=== PATIENT | female | born 1940 | race Caucasian/White ===

== ENCOUNTER 2017-09-23 19:24 | Inpatient (IN) | payer OTHER ==
[~2017-09-23] VITALS: Ht 160 cm; Wt 71.6 kg
--- NOTE | ~2017-09-23 | HC ---
[facility] [place] [address] [address] [place] [address] CONSULTATION Name: JUAN THOMPSON Room #: 239-P [facility] IN M.R.#: [id number] Admission: 09/23/17 Attend Phys: Nura Mcfarland DO Discharge: Date of : 44 Report #: [id number] THIS REPORT FOR: //name// CC: Ryan Vizcaino REASON FOR CONSULTATION: Hyponatremia. REASON FOR PRESENTATION: Abnormal mental status. HISTORY OF PRESENT ILLNESS: This was obtained from the chart as the patient is currently status post seizure and not able to provide me with history. She presented with acute mental status last night. Caregiver and her facility reported that she has not been able to carry a normal conversation. She was confused. In her usual status, she is alert and oriented. She presented to the emergency room where she was found to have seizure and hyponatremia. She is chronically maintained on hydrochlorothiazide/triamterene. She is also known to have seizure disorder. Sodium on presentation was 108 and I was consulted to manage her hyponatremia. PAST MEDICAL HISTORY: 1. Seizure disorder. 2. Hypertension. 3. Hypothyroidism. MEDICATIONS: 1. Phenytoin. 2. Phenobarb. 3. Levothyroxine. 4. Triamterene/hydrochlorothiazide. ALLERGIES: None. SOCIAL HISTORY: She stays in the facility. No drug or alcohol abuse. REVIEW OF SYSTEMS: This was obtained from the ER note as the patient currently had acute mental status changes. CONSTITUTIONAL: No fever or chills. PULMONARY: No cough or hemoptysis. CARDIOVASCULAR: No chest pain or palpitation. GASTROINTESTINAL: Decreased p.o. intake. GENITOURINARY: No frequency, no urgency. NEUROLOGIC: As per the history of present illness. PHYSICAL EXAMINATION: [facility] [address] [place] [address] CONSULTATION Name: THOMPSONJUAN Room #: 239-P [facility] IN M.R.#: [id number] Admission: 09/23/17 Attend Phys: Nura Mcfarland DO Discharge: Date of : 42 Report #: [id number] GENERAL: . VITAL SIGNS: Pulse ox 97, blood pressure 150/80. HEAD AND NECK: No jugular venous distention. CHEST: No crackles. CARDIOVASCULAR: Regular with no rub. ABDOMEN: Soft, nontender with no hepatosplenomegaly. LOWER EXTREMITIES: No edema. LABORATORY DATA: Reviewed. Sodium is up to 114 from 108, that is a 6 mEq change. Potassium is low at 2.6. CT head negative. Chest x-ray negative. ASSESSMENT, IMPRESSION AND PLAN: 1. Acute hyponatremia. 2. Seizure disorder. 3. Chronic triamterene/hydrochlorothiazide usage. 4. This seems to be all exacerbated by her triamterene/hydrochlorothiazide. She received 200 mL of 3% saline with complete resolution of her seizures. Sodium is up by 6 mEq, at this point I will stop all the IV fluid. 5. Replace potassium. 6. Continue to watch sodium every 2-3 hours with a target of very gradual increment in her sodium so as not to overshoot with overcorrection. 7. We will defer the management of her seizures to the primary and the neurology team. 8. The fact that she had a persistent seizure in the face of hyponatremia was an absolute indication for 3% . <ELECTRONICALLY SIGNED> By: Ryan Smith MD 09/26/17 0939 0847 0926 Ryan Smith MD /nt
--- NOTE | ~2017-09-23 | EEG ---
[facility] [place] [address] [place] [address] ELECTROENCEPHALOGRAM Name: JUAN THOMPSON Room #: 239-P [facility] IN M.R.#: [id number] Admission: 09/23/17 Attend Phys: Nura Mcfarland DO Discharge: Date of : 42 Report #: [id number] THIS REPORT FOR: //name// CC: Ryan Drake [facility]eric Hallie Atwater DATE OF SERVICE: 09/30/2017 This patient's EEG indicates that on the left side, the background activity is about 8 Hz and 30 microvolt. Epileptiform activity is still present on the right side, but appeared to have improved. Photic stimulation is unremarkable. IMPRESSION: Continuous improvement in the epileptiform activity in the right cerebral hemisphere, but it has not fully resolved yet. Thank you very much for this referral. <ELECTRONICALLY SIGNED> By: Milton Avilez MD 10/03/17 0732 1702 1715 Milton Avilez MD /nt
--- NOTE | ~2017-09-23 | HC ---
[facility] [place] [address] [place] [address] CONSULTATION Name: JUAN THOMPSON Room #: 239-P [facility] IN M.R.#: [id number] Admission: 09/23/17 Attend Phys: Nura Mcfarland DO Discharge: Date of : 42 Report #: [id number] THIS REPORT FOR: //name// CC: Ryan Vizcaino TYPE OF REPORT: Infectious diseases consultation. REASON FOR CONSULTATION: I was asked to evaluate concerning seizures, hypertension and pneumonia. HISTORY OF PRESENT ILLNESS: The patient was a 77-year-old known longstanding seizure disorder, controlled on several anti-seizure medications. She lives at [facility]. Has noted some cough and congestion over the last week. Yesterday was noted to have some cognitive impairment. Because of this, she was brought into the Emergency Room. She developed further seizures. Once in the Emergency Room, required intubation and mechanical ventilation. She has had no fever, chills or sweats. There was predating this, no headaches. Further evaluation noted ischemic changes on MRI scan along with hyponatremia with a sodium of 109. White count was 14.3 and chest x-ray showed left lower lobe infiltrate. She was started on vancomycin and Zosyn. ALLERGIES: None known. MEDICATIONS: Prior to her admission included fish oil, Nexium, fexofenadine, folic acid, Synthroid, multivitamin, phenobarbital, Maxzide, Dilantin, vitamin B12 and levothyroxine. PAST MEDICAL HISTORY: Seizure disorder since age 4, hypothyroidism and hypertension and fractured her wrist 2 months ago. FAMILY HISTORY: Noncontributory. SOCIAL HISTORY: Nonsmoker. No significant alcohol intake. No HIV risks. REVIEW OF SYSTEMS: The patient unable to give any details. She was intubated and on mechanical ventilation. Did have an indwelling [place] catheter. PHYSICAL EXAMINATION: VITAL SIGNS: Afebrile, heart rate 178 and blood pressure 117/75, on Levophed drip and propofol. She is intubated on FiO2 of 40%. There was tonic-clonic movements to her left hand and arm. EYES: Unremarkable. [facility] [address] [place] [address] CONSULTATION Name: JUAN THOMPSON Room #: 239-P [facility] IN M.R.#: [id number] Admission: 09/23/17 Attend Phys: Nura Mcfarland DO Discharge: Date of : 42 Report #: [id number] MOUTH: Orally intubated. NECK: Supple. LUNGS: Consolidation in the left base posteriorly. HEART: Regular. ABDOMEN: Soft and nontender. EXTREMITIES: Unremarkable. RADIOLOGICAL DATA: CT scan of the head was unremarkable. MRI scan of the head showed right temporal stroke with involvement in the thalamus as well as the right insular cortex. Also, has mild sinusitis changes. Chest x-ray, left lower lobe consolidation. LABORATORY DATA: Sodium 122 and up from her admission of 109, potassium 3.3, bicarbonate of 27 and creatinine 0.7. Hemoglobin 10.5; platelet count 284,000 and white count was 14.3. MRSA screen negative. TSH normal. Urinalysis unremarkable. IMPRESSION: A 77-year old with ongoing seizures in the setting of hyponatremia and new onset stroke. Other findings include mild sinusitis and left lower lobe pneumonia. Given these factors, I am doubtful that this is a primary central nervous system infection. RECOMMENDATIONS: I would recommend continuing antibiotic coverage pending culture results of blood and sputum. We will check influenza studies and treat with antibiotics and Tamiflu. We will discuss further with Neurology. If they feel that this is atypical process for her stroke presentation, then we will proceed with a lumbar puncture. <ELECTRONICALLY SIGNED> By: Juan Miguel Thurman MD 09/27/17 0951 1239 2320 Juan Miguel Thurman MD /nt
--- NOTE | ~2017-09-23 | EEG ---
[facility] [place] [address] [place] [address] ELECTROENCEPHALOGRAM Name: DONNAJUAN Room #: 239-P [facility] IN M.R.#: [id number] Admission: 09/23/17 Attend Phys: Nura Mcfarland DO Discharge: Date of : 42 Report #: [id number] THIS REPORT FOR: //name// CC: Ryan Drake Noemí Wisemen DATE OF SERVICE: 09/26/2017 This patient is being evaluated for a followup of seizures. EEG was done by placing the electrodes by standard 10-20 system of electrode placement. Both referential and sequential montages were used for recording. Background activity in this patient's EEG is about 7 Hz on the left side. On the right side this patient continued to demonstrate periodic lateralized epileptiform discharges. Photic stimulation is unremarkable. IMPRESSION: This is an abnormal electroencephalogram, which continues to demonstrate pretty prominent periodic lateralized epileptiform discharges. Clinical correlation is recommended for that. Thank you very much for this referral. <ELECTRONICALLY SIGNED> By: Milton Avilez MD 09/28/172001 01 19 Milton Avilez MD /nt
--- NOTE | ~2017-09-23 | EEG ---
[facility] [address] [place] [address] ELECTROENCEPHALOGRAM Name: DONNAJUAN Room #: 239-P [facility] IN M.R.#: [id number] Admission: 09/23/17 Attend Phys: Nura Mcfarland DO Discharge: Date of : 42 Report #: [id number] THIS REPORT FOR: //name// CC: Ryan Drake Francoiseric Hallie Wisemen DATE OF SERVICE: 09/27/2017 This patient is being evaluated for a seizure disorder. This is a comparison with the last EEG. On the left side, the patient's background activity is going about 9 Hz and 30 microvolt. On the right side, the patient still has periodic lateralizing epileptiform discharges, but looks less than it was last time. IMPRESSION: A slight improvement in this patient's periodic lateralizing epileptiform discharges on the right side, but still significant amount of epileptiform activity is present, almost exclusively on the right side. Thank you very much for this referral. <ELECTRONICALLY SIGNED> By: Milton Avilez MD 09/28/172001 1758 181 Milton Avilez MD /nt
--- NOTE | ~2017-09-23 | 2DMMODE ---
[facility] [address] [place] [address] 2 D/M-MODE ECHOCARDIOGRAM Name: JUAN THOMPSON Room #: 239-P [facility] IN M.R.#: [id number] Admission: 09/23/17 Attend Phys: Nura Mcfarland, Discharge: Date of : 44 Date of Service: 09/25/17 1526 Report #: [id number] THIS REPORT FOR: //name// APPROVED REPORT Study performed: 09/25/2017 14:10:36 EXAM: Comprehensive 2D, Doppler, and color-flow Echocardiogram Patient Location: ICU Room #: 239 Status: routine BSA: 1.70 HR: 80 bpm BP: 106/51 mmHg Other Information Study Quality: Adequate Indications CVA/TIA Echo Enhancing Agent Indication: Rule out Shunt Agent(s) / Amount(s) Used: Agitated Saline 7 cc 2D Dimensions RVDd: 28.77 mm LVEF(%): 66.09 (>50%) IVSd: 7.84 (7-11mm) LVOT Diam: 19.46 (18-24mm) LVDd: 46.61 mm PWd: 7.23 (7-11mm) LVDs: 29.66 (25-40mm) Aortic Root: 27.26 mm IVC: 24.00 mm Bettencourt's LVEF: 66.09 % Volumes Left Atrial Volume (Systole) Single Plane 4CH: 38.41 mL Single Plane 2CH: 20.98 mL LA ESV Index: 20.00 mL/m2 Aortic Valve AoV Peak Kenneth.: 1.70 m/s AO Peak Gr.: 11.55 mmHg LVOT Max P.25 mmHg LVOT Max V: 1.25 m/s LOLY Vmax: 2.19 cm2 [facility] [address] [place] [address] 2 D/M-MODE ECHOCARDIOGRAM Name: JUAN THOMPSON Room #: 239-[facility] IN .R.#: [id number] Admission: 09/23/17 Attend Phys: Nura Mcfarland, Discharge: Date of : 44 Date of Service: 09/25/17 1526 Report #: [id number] Mitral Valve E/A Ratio: 1.2 MV Decel. Time: 144.81 ms MV E Max Kenneth.: 0.78 m/s MV A Kenneth.: 0.66 m/s MV PHT: 42.00 ms IVRT: 101.50 ms Pulmonary Valve PV Peak Kenneth.: 1.01 m/s PV Peak Gr.: 4.12 mmHg Pulmonary Vein P Vein S: 0.72 m/s P Vein A: 0.36 m/s P Vein D: 0.44 m/s P Vein A Dur.: 138.4 msec P Vein S/D Ratio: 1.64 Tricuspid Valve TR Peak Kenneth.: 2.49 m/s TR Peak Gr.: 24.86 mmHg PA Pressure: 40.00 mmHg Left Ventricle The left ventricle is normal size. There is normal LV segmental wall motion. There is normal left ventricular wall thickness. The left ventricular systolic function is normal. The left ventricular ejection fraction is within the normal range. LVEF is 60-65%. Grade I - abnormal relaxation pattern. Right Ventricle The right ventricle is normal size. The right ventricular systolic function is normal. Atria The left atrium size is normal. No shunting by contrast bubble injection The right atrium size is normal. Aortic Valve Aortic valve is not well visualized. Trace aortic regurgitation. There is no aortic valvular stenosis. Mitral Valve The mitral valve is normal in structure. Trace mitral regurgitation. No evidence of mitral valve stenosis. Tricuspid Valve The tricuspid valve is normal in structure. There is trace tricuspid [facility] [address] [place] [address] 2 D/M-MODE ECHOCARDIOGRAM Name: JUAN THOMPSON Room #: 239-P [facility]#: [id number] Admission: 09/23/17 Attend Phys: Nura Mcfarland, Discharge: Date of : 42 Date of Service: 09/25/17 1526 Report #: [id number] regurgitation. Estimated PAP 40 mmHg. There is mild-moderate pulmonary hypertension. Pulmonic Valve The pulmonary valve is normal in structure. There is no pulmonic valvular regurgitation. Great Vessels The aortic root is normal in size. The inferior vena cava is dilated with no inspiratory collapse. Pericardium There is no pericardial effusion. <Conclusion> The left ventricular systolic function is normal. There is normal LV segmental wall motion. LVEF is 60-65%. No shunting by contrast bubble injection Aortic valve is not well visualized. Trace aortic regurgitation, no stenosis. The mitral valve is normal in structure. Trace mitral regurgitation. There is trace tricuspid regurgitation. Estimated pulmonary artery pressure of 40 mmHg. There is no pericardial effusion. <ELECTRONICALLY SIGNED> By: Yunier Celestin MD, FACC 09/25/17 1526 1526 1526 Yunier Celestin MD, FACC /INF
--- NOTE | ~2017-09-23 | EEG ---
[facility] [place] [address] [place] [address] ELECTROENCEPHALOGRAM Name: THOMPSONJUAN Room #: 239-P [facility] IN M.R.#: [id number] Admission: 09/23/17 Attend Phys: Nura Mcfarland DO Discharge: Date of : 42 Report #: [id number] THIS REPORT FOR: //name// CC: Ryan Drake Noemí Wisemen DATE OF SERVICE: 09/24/2017 INDICATION FOR PROCEDURE: This patient is being evaluated for seizures. INTERPRETATION: EEG was done by placing the electrodes by standard 10-20 system of electrode placement. Both referential and sequential montages were used for recording. Background activity in this patient's EEG goes up to about 6-7 Hz. The patient appeared to have pretty significant seizure activity arising from the right cerebral hemisphere. The patient went to sleep that is associated with bilaterally symmetrical sleep spindle and vertex sharp waves. Throughout the record, right-sided epileptiform activity continued to be seen. IMPRESSION: This is an abnormal electroencephalogram demonstrating epileptiform activity, especially from the right cerebral hemisphere. Thank you very much for this referral. <ELECTRONICALLY SIGNED> By: Milton Avilez MD 09/28/172001 26 02 Milton Avilez MD /nt
--- NOTE | ~2017-09-23 | EEG ---
[facility] [place] [address] [place] [address] ELECTROENCEPHALOGRAM Name: THOMPSONJUAN Room #: 361-P [facility] IN M.R.#: [id number] Admission: 09/23/17 Attend Phys: Nura Mcfarland DO Discharge: 10/09/17 Date of : 42 Report #: [id number] THIS REPORT FOR: //name// CC: Ryan Drake Francoiseric Hallie Vizcaino DATE OF SERVICE: 10/05/2017 This patient had status epilepticus, but appeared to be becoming better. EEG was done to see residual seizure activity. Background activity in this patient has gone up to about 9 Hz and 40 microvolts. This is a symmetrical activity, now epileptiform activity, which was noticed on the right side, has much improved. Photic stimulation is unremarkable. IMPRESSION: Significant improvement in this patient's epileptiform activity in the right side and no active epileptiform activity was noticed during this record. Thank you very much for this referral. <ELECTRONICALLY SIGNED> By: Milton Avilez MD 10/17/172010 18 36 Milton Avilez MD /nt
--- NOTE | ~2017-09-23 | HC ---
[facility] [place] [address] [place] [address] CONSULTATION Name: JUAN THOMPSON Room #: 239-P [facility] IN M.R.#: [id number] Admission: 09/23/17 Attend Phys: Nura Mcfarland DO Discharge: Date of : 42 Report #: [id number] THIS REPORT FOR: //name// CC: Ryan Vizcaino PULMONARY CONSULTATION REFERRING PHYSICIAN: Dr. Mcfarland. REASON FOR REFERRAL: Acute respiratory failure due to status epilepticus. HISTORY OF PRESENT ILLNESS: The patient is a 77-year-old white female who was brought to the Emergency Room with altered mental status. She normally resides at [facility]. The patient in the ER had recurrent seizure disorders, where she was subsequently intubated. A Pulmonary consultation was requested. Presently, she is sedated. She is still having breakthrough seizures. Neurology has been consulted. She is currently undergoing further workup. In the ER, the patient was also found to be severely hyponatremic with sodium of 109. She is currently being seen by Nephrology, 3% hypertonic saline has been initiated. PAST MEDICAL HISTORY: Notable for seizure disorder, hypothyroidism and hypertension. PAST SURGICAL HISTORY: Unremarkable. ALLERGIES: None noted. HOME MEDICATIONS: Reviewed as in the MAR. FAMILY HISTORY: Unknown. SOCIAL HISTORY: The patient is a lifetime nonsmoker. No alcohol use. REVIEW OF SYSTEMS: Deferred as the patient is intubated. PHYSICAL EXAMINATION: GENERAL: On exam, she is sedated. No active seizure noted. VITAL SIGNS: Temperature is 99 degrees Fahrenheit, pulse is 80, respiratory rate is 20, blood pressure 114/57 mmHg and saturation is 100%. HEENT: Normocephalic, atraumatic. [facility] [address] [place] [address] CONSULTATION Name: JUAN THOMPSON Room #: 239-P [facility] IN M.R.#: [id number] Admission: 09/23/17 Attend Phys: Nura Mcfarland DO Discharge: Date of : 42 Report #: [id number] NECK: Supple. No lymphadenopathy or thyromegaly. CHEST: Breath sounds are good bilaterally, without any rales or wheezes. CARDIOVASCULAR: Normal S1, S2. There are no murmurs or gallop. There is no JVD. There is no carotid bruit. Pulses are 2+/4+ bilaterally. ABDOMEN: Soft, nontender. No organomegaly or masses felt. GENITOURINARY: Deferred. RECTAL: Deferred. EXTREMITIES: There is no edema, cyanosis or clubbing. LABORATORY DATA: Portable chest x-ray shows mild left lower lobe infiltrates, calcified granuloma seen in the right upper lung field. Dilantin level was less than 0.5. Phenobarbital level was 30. TSH was 1.24. CT head was unremarkable. MRI of the head shows possible small infarct involving the right temporal, anterior occipital area. Echocardiogram showed ejection fraction of 60% to 65%, pulmonary artery pressure around 40, otherwise grossly unremarkable. Sodium initially was 109, potassium 2.7, chloride 71, CO2 is 28, BUN is 6, creatinine 0.7 and glucose is 131. Liver function enzymes unremarkable. WBC is 7000, hemoglobin is 12.1 and platelets are normal. Arterial blood gas revealed pH of 7.51, pCO2 of 33 and pO2 of 450 on FiO2 100%. Albumin 2.7. IMPRESSION: 1. Acute hypoxic respiratory failure in this 77-year-old white female due to status epilepticus. 2. Seizure disorder with status epilepticus. 3. Profound hyponatremia, likely due to recent diuretic use. 4. Hypothyroidism. 5. Cerebrovascular accident per MRI. RECOMMENDATIONS: We will continue mechanical ventilation, correct hyponatremia, as you are. The patient has also been seen by Neurology regarding breakthrough seizures. DVT and GI prophylaxis will be addressed. Thank you for this consultation. <ELECTRONICALLY SIGNED> By: Imer Szymanski MD 09/26/17 1548 1631 2348 Imer Szymanski MD /nt
--- NOTE | ~2017-09-23 | HC ---
[facility] [place] [address] [place] [address] CONSULTATION Name: JUAN THOMPSON Room #: 239-P ADM IN M.R.#: [id number] Admission: 09/23/17 Attend Phys: Nura Mcfarland DO Discharge: Date of : 42 Report #: [id number] THIS REPORT FOR: //name// CC: Ryan Drake Noemí Vizcaino DATE OF SERVICE: 09/24/2017 HISTORY OF PRESENT ILLNESS: This is a 77-year-old female patient who is unable to provide any history at all. This patient is in fact nonverbal at the moment when I saw her and she did not say anything back to me. I talked to the nurses, they have some history and a lot of history is present in the record and that is where most of the history was taken. This patient was admitted with hyponatremia. It is significant hyponatremia, but the cause of it is not clear. She was also having altered mental status at that time, but typically she is alert and oriented. She also has seizures, but further history about seizure is not clear. I tried to call 2 numbers for the daughters which are there in the records, but I was not able to reach either one of them. From the records, I cannot get anything more about the history of seizures. REVIEW OF SYSTEMS: Almost entirely from the records. It looks like this patient has seizures and she does have a prior history of seizure, but I cannot get any further history in this patient. Record indicates they have called Dr. Vizcaino and she has already given this patient Keppra and Dilantin. The patient is not clinically having anymore seizures, but looks like the EEG, which is being done at the moment does demonstrate electrical seizure activity. I tried to get the 14-point review of systems in this patient, but that is all I can get even from the record, it looks like she is still hyponatremic and hypokalemic. PAST MEDICAL HISTORY: It looks like she has a history of seizures in the past. FAMILY HISTORY: Unavailable if she has seizures or not. SOCIAL HISTORY: From the nurses and it looks like she lives in independent living and was able to do most of the things of daily living by herself, but again that history has to be confirmed from the family or somebody independently. PHYSICAL EXAMINATION: Her examination is very limited. She is alert, she looks at you, but she does not say anything. She does not follow any commands, that makes it very difficult to do any further examination in this patient. Cranial nerve examination 2-12 was attempted, but I cannot tell, her palpebral fissure on the left side is somewhat smaller and look somewhat unusual, but I do not know what to make of it. Neuromuscular examination was impossible except [facility] [address] [place] [address] CONSULTATION Name: DONNAJUAN Room #: 239-P ADM IN M.R.#: [id number] Admission: 09/23/17 Attend Phys: Nura Mcfarland DO Discharge: Date of : 42 Report #: [id number] reflexes look diminished, but that may be just because she is not able to take appropriate position. I cannot tell about sensation. She is otherwise a reasonably well-developed individual who does not have any dysmorphic features of eyes, ears and face. I cannot tell about hearing or vision. She does not appear to have any thyroid mass. Her cardiac examination does not appear to be showing any murmur or any abnormality of the heart sounds. Respiratory examination does not appear to be showing any respiratory difficulty. pulses are palpable and she does not have any edema, cyanosis, or jaundice. Her blood pressure is 128/72, respiration is 19 and pulse is 81. LAB: Indicates a normal white count, but the sodium is still only 114. Her CT scan of the head that was unremarkable. IMPRESSION: 1. Hyponatremia. 2. Seizures. If seizures started along with hyponatremia then she may need a short-term treatment. However, if the seizure has been present for a long period of time, then she needs a different treatment. We need family to find out that information and also if she was ever on any anticonvulsant. The cause of hyponatremia also needs to be determined in this patient. Presently, she is not having any active clinical seizures and she is having only cortical seizures. RECOMMENDATIONS: 1. Gentle correction of hyponatremia over a period of time. I agree with Dr. Vizcaino that it will not be desirable to use hypertonic saline especially because she is not having any active clinical seizure at the moment. 2. Presently, she is on 3 anticonvulsants. We can continue that for the time being, but ultimately her anticonvulsant regimen has to be simplified. 3. If the seizures and hyponatremia is acute in onset, then she may need a spinal tap. If the seizures are longstanding, then I do not think we need a spinal tap in this patient. I have asked the nurses to talk to the patient's family and get back with me as soon as they are here, so that we can get some more information in this patient and discuss further management. Thank you very much for this referral. <ELECTRONICALLY SIGNED> By: Milton Avilez MD 09/28/172000 0821 6 MD doug Wade
--- NOTE | ~2017-09-23 | EEG ---
[facility] [place] [address] [address] [place] [address] ELECTROENCEPHALOGRAM Name: JUAN THOMPSON Room #: 239-P [facility] IN M.R.#: [id number] Admission: 09/23/17 Attend Phys: Nura Mcfarland DO Discharge: Date of : 42 Report #: [id number] THIS REPORT FOR: //name// CC: Ryan Drake Francoiseric Hallie Wisemen DATE OF SERVICE: 09/29/2017 This patient is being evaluated for continuation of the seizures. EEG was done by placing the electrodes by standard 10-20 system of electrode placement. On the left side, background activity goes to about 7 Hz and 30 microvolt. On the right side, epileptiform activity is present, but appeared to have decreased. Photic stimulation is unremarkable. IMPRESSION: Decreased, but not resolution of epileptiform activities arising from the right cerebral hemisphere. Thank you very much for this referral. <ELECTRONICALLY SIGNED> By: Milton Avilez MD 10/03/17 0732 1700 1713 Milton Avilez MD /nt
--- NOTE | ~2017-09-23 | EKG ---
[address] [address] ELECTROCARDIOGRAM REPORT Name: JUAN THOMPSON Room #: 239-P ADM IN M.R.#: [id number] Admission: 09/23/17 Attend Phys: Guido Deal MD Discharge: Date of : 42 Report #: [id number] THIS REPORT FOR: //name// [facility] ED Test Date: 2017-09-23 Test Time: 20:05:16 Pat Name: JUAN THOMPSON Department: Room: 239 Gender: F Mid Level Clinician: MARTINEZ : 1940 Requested By: Luz Marina Pino Order Number: [id number] MD: Amrit Lilly Measurements Intervals Wilbur Rate: 75 P: 70 NH: 195 QRS: 29 QRSD: 108 T: 59 QT: 421 QTc: 471 Interpretive Statements Sinus rhythm Abnormal R-wave progression, early transition Nonspecific T abnormalities, lateral leads No previous ECG available for comparison Electronically Signed On 09-24-2017 8:09:03 [employer] by Amrit Lilly [email or web address] <ELECTRONICALLY SIGNED> By: Amrit Lilly MD 09/24/1709 04 04 Amrit Lilly MD /LUPE
--- NOTE | ~2017-09-23 | HC ---
[facility] [place] [address] [address] [place] [address] CONSULTATION Name: THOMPSONJUAN Room #: 239-P ADM IN M.R.#: [id number] Admission: 09/23/17 Attend Phys: Nura Mcfarland DO Discharge: Date of : 42 Report #: [id number] THIS REPORT FOR: //name// CC: Ryan Drake Noemí Vizcaino DATE OF SERVICE: 10/02/2017 HISTORY OF PRESENT ILLNESS: The patient is a 77-year-old female who lives in an independent living apartment over at [facility]. She had the onset of mental status changes when she was not talking normally, had decreased attention, was admitted and had some tonic clonic seizures in the emergency department. She was noted to have intractable seizures with status epilepticus. She also had a sodium of 110. She was intubated. She has been on low dose propofol. With trying to lighten her management, she has then gone into seizure activity. She is on multiple anti-seizure medications with Neurology closely involved. Her sodium has improved to 132. She has had some anemia and noted to have a positive Gastroccult with negative Hemoccult and Gastroenterology is following. Also, as part of her neuro workup, she had undergone an MRI scan, which showed a medial right temporal or anterior occipital small infarct. Again, Neurology is involved as noted above. We are seeing her in rehabilitation medicine consultation. PAST MEDICAL HISTORY: Seizure, hypothyroidism, and hypertension. MEDICATIONS: Please see the full medication listing. ALLERGIES: No known drug allergies. HABITS: No history of tobacco or alcohol abuse. SOCIAL HISTORY: Lives at [facility] in her own apartment. She was living there alone, apparently did not utilize any assistive device for ambulation. REVIEW OF SYSTEMS: Unobtainable. PHYSICAL EXAMINATION: GENERAL: The patient is in the intensive care unit. VITAL SIGNS: Her last recorded temperature 98.4, pulse 78, respirations 14, blood pressure 98/42. She is orally intubated. NEUROLOGIC: She is currently sedated and is on low dose propofol per discussion with nursing. Bilateral wrists are restrained. She has the indwelling Vegas catheter. She will attempt to arouse some. With my testing both [facility] [address] [place] [address] CONSULTATION Name: JUAN THOMPSON Room #: 239-P [facility] IN M.R.#: [id number] Admission: 09/23/17 Attend Phys: Nura Mcfarland DO Discharge: Date of : 42 Report #: [id number] extremities, she appeared to have strength probably a grade 4- to 3+/5. Again, she has wrist restraints. Lower extremities. Tone appeared reasonably intact. Again, I could not test actual volitional strength. I did not detect any clonus at the ankles. There is no focal calf swelling. Again, she is quite somnolent. ASSESSMENT: A 77-year-old white female with the following problem list: 1. Status epilepticus. 2. Medial right temporal/anterior occipital small infarct. 3. Respiratory failure. If no seizure, considering weaning protocol. 4. Severe hyponatremia at 110, now improved to 132. 5. Anemia with positive Gastroccult and negative Hemoccult. 6. Hypothyroidism. PLAN: Hopefully, we will be able to start the weaning protocol depending upon how she does. Discussion with the nursing staff. Consider restarting physical therapy as she further improves. We will be glad to follow along with you regarding her rehab therapy needs. <ELECTRONICALLY SIGNED> By: Jose Elias Lozoya MD 10/02/17 1109 0802 0827 Jose Elias Lozoya MD /[facility]
--- NOTE | ~2017-09-23 | EEG ---
[facility] [place] [address] [place] [address] ELECTROENCEPHALOGRAM Name: JUAN THOMPSON Room #: 239-P [facility] IN M.R.#: [id number] Admission: 09/23/17 Attend Phys: Nura Mcfarland DO Discharge: Date of : 42 Report #: [id number] THIS REPORT FOR: //name// CC: Ryan Drake Francoiseric Hallie Wisemen DATE OF SERVICE: 09/28/2017 This patient's EEG was done for comparison. EEG on the right side still shows periodic lateralizing epileptiform discharges, but it does appear to be somewhat less than it was last time. On the left side, it is reasonably well formed at about 8 Hz and 30 microvolts. Photic stimulation was unremarkable. IMPRESSION: Improvement in the epileptiform discharges arising from the right cerebral hemisphere, but epileptiform discharges are still present. Clinical correlation is recommended. Thank you very much for this referral. <ELECTRONICALLY SIGNED> By: Milton Avilez MD 09/28/172001 1848 22 Milton Avilez MD /nt
--- NOTE | ~2017-09-23 | EEG ---
[facility] [place] [address] [place] [address] ELECTROENCEPHALOGRAM Name: JUAN THOMPSON Room #: 361-[facility] IN M.R.#: [id number] Admission: 09/23/17 Attend Phys: Nura Mcfarland DO Discharge: 10/09/17 Date of : 42 Report #: [id number] THIS REPORT FOR: //name// CC: Ryan Drake Noemí Vizcaino DATE OF SERVICE: 10/01/2017 This patient is being evaluated for altered mental status and seizures. This EEG is for comparison. Background activity is about 8 Hz and 30 microvolt. The seizure activity arising from the right cerebral hemisphere is mostly resolved. Photic stimulation is unremarkable. IMPRESSION: Resolution of the seizure activity arising from the right cerebral hemisphere. EEG is still slow which would be consistent with multiple things including encephalopathy, effect of psychotropic medication, dementia, postictal period, etc. Clinical correlation is recommended. Thank you very much for this referral. <ELECTRONICALLY SIGNED> By: Milton Avilez MD 10/17/172010 0733 Milton Avilez MD /nt
--- NOTE | ~2017-09-23 | EEG ---
[facility] [place] [address] [place] [address] ELECTROENCEPHALOGRAM Name: JUAN THOMPSON Room #: 239-P [facility] IN M.R.#: [id number] Admission: 09/23/17 Attend Phys: Nura Mcfarland DO Discharge: Date of : 42 Report #: [id number] THIS REPORT FOR: //name// CC: [facility] DATE OF SERVICE: 09/25/2017 This patient is being evaluated for seizures. EEG was done by placing the electrodes by standard 10-20 system of electrode placement. EEG is symmetrical. On the left side, the background activity appeared to be about 8 Hz and 30 microvolt. On the right side, she appeared to be showing periodic lateralizing epileptiform discharges. Photic stimulation was unremarkable. IMPRESSION: This is an abnormal EEG, which demonstrates finding consistent with periodic lateralizing epileptiform discharges arising from the right side. Clinical correlation is recommended. Thank you very much for this referral. <ELECTRONICALLY SIGNED> By: Milton Avilez MD 09/28/172001 28 38 Milton Avilez MD /nt
--- NOTE | ~2017-09-23 | EEG ---
[facility] [place] [address] [place] [address] ELECTROENCEPHALOGRAM Name: JUNA THOMPSON Room #: 361-P [facility] IN M.R.#: [id number] Admission: 09/23/17 Attend Phys: Nura Mcfarland DO Discharge: 10/09/17 Date of : 42 Report #: [id number] THIS REPORT FOR: //name// CC: Ryan Vizcaino DESCRIPTION: The patient is being evaluated for any reoccurrence of seizures after intractable status epilepticus. EEG was done by placing the electrode by standard 10-20 system of electrode placement. Both referential and sequential montages were used for recording. Background activity in this patient's EEG is about 9 Hz and 40 microvolt. The patient went to sleep that is associated with bilaterally symmetrical sleep spindle and vertex sharp waves. Photic stimulation is unremarkable. Throughout the record, no active epileptiform activity was noticed. IMPRESSION: This patient's EEG is still intermixed with some moderate amount of theta range slowing. However, no active epileptiform activity was noticed during this record. Thank you very much for this referral. <ELECTRONICALLY SIGNED> By: Milton Avilez MD 10/17/172010 1548 1649 Milton Avilez MD /nt
[2017-09-23 19:30] VITALS: BP 153/83
[2017-09-23] MEDS ORDERED: DILANTIN100 MG PO (20:23)
[2017-09-23] MEDS ORDERED: SYNTHROID100 MCG PO (20:24)
[2017-09-23] MEDS ORDERED: PHENOBARBITAL97.2 M2 PO (20:24)
[2017-09-23] MEDS ORDERED: NEXIUM40 MG PO (20:24)
[2017-09-23] MEDS ORDERED: FOLIC ACID1 MG PO (20:24)
[2017-09-23] MEDS ORDERED: MULTIPLE VITAM1 EAC2 PO (20:25)
[2017-09-23] MEDS ORDERED: FISH OIL 1,001000 M2 PO (20:25)
[2017-09-23] MEDS ORDERED: ALLER-FEX180 MG PO (20:25)
[2017-09-23] MEDS ORDERED: MAXZIDE-25 MG1 EACH PO (20:25)
[2017-09-23] MEDS ORDERED: B12INJ IM (20:26)
[2017-09-23 20:28] LABS: ABSOLUTE NEUTROPHILS 5.5 thou/uL (1.4-8.2); BASOPHILS 0.2 % (0.0-2.0); EOSINOPHILS 0.3 % (0.0-3.0); HEMATOCRIT 34.3 % (37.0-47.0); HEMOGLOBIN 12.1 gm/dL (12.0-15.0); LYMPHOCYTES 13.2 % (24.0-44.0); MCHC 35.3 g/dL (28.0-37.0); MCV 87.9 fL (80.0-100.0); MONOCYTES 6.7 % (1.0-8.0); PLATELET COUNT 354 thou/uL (150-400); POLYS 79.6 % (36.0-66.0); RDW 12.8 % (10.5-14.5)
[2017-09-23 20:32] LABS: BUN 6 mg/dL (7-18); CALCIUM 8.7 mg/dL (8.5-10.1); CHLORIDE 71 mmol/L (98-107); CO2 28 mmol/L (21-32); CREATININE 0.7 mg/dL (0.6-1.0); GLUCOSE 131 mg/dL (74-106)
[2017-09-23 20:36] LABS: ANION GAP 10 mmol/L (7-16); POTASSIUM 2.7 mmol/L (3.5-5.1)
[2017-09-23 20:37] LABS: SODIUM 109 mmol/L (136-145)
[2017-09-23 20:42] LABS: SGOT 33 U/L (15-37); TOTAL BILIRUBIN 0.2 mg/dL (<0.1-1.0)
[2017-09-23 20:43] LABS: ALBUMIN 3.6 g/dL (3.4-5.0); SGPT 30 U/L (30-65); TOTAL PROTEIN 7.2 g/dL (6.4-8.2); TROPONIN-I < 0.04 ng/mL (<0.06)
[2017-09-23 21:01] LABS: URINE BILIRUBIN NEGATIVE (Negative); URINE BLOOD TRACE (Negative); URINE CLARITY CLEAR; URINE COLOR YELLOW; URINE GLUCOSE-RANDOM* NEGATIVE (Negative); URINE KETONES NEGATIVE (Negative); URINE LEUKOCYTES NEGATIVE (Negative); URINE NITRITE NEGATIVE (Negative); URINE PROTEIN (DIPSTICK) TRACE (Negative); URINE UROBILINOGEN 0.2 E.U./dl (0.2-1.0)
[2017-09-23 22:58] VITALS: BP 170/87
[2017-09-23 23:41] LABS: CALCIUM 8.2 mg/dL (8.5-10.1); CREATININE 0.6 mg/dL (0.6-1.0)
[2017-09-23 23:45] LABS: POTASSIUM 2.4 mmol/L (3.5-5.1)
[2017-09-23 23:46] VITALS: BP 146/84
[2017-09-24] VITALS (48 sets, daily range): BP systolic 84–147; BP diastolic 54–110
[2017-09-24] MEDS ORDERED: DILANTIN100 MG PO (00:53)
[2017-09-24] MEDS ORDERED: ASPIRIN325 PO (00:55)
[2017-09-24 05:05] LABS: CALCIUM 8.4 mg/dL (8.5-10.1); CREATININE 0.7 mg/dL (0.6-1.0)
[2017-09-24 05:09] LABS: POTASSIUM 2.6 mmol/L (3.5-5.1)
[2017-09-24 16:46] LABS: POTASSIUM 2.9 mmol/L (3.5-5.1)
[2017-09-24 23:00] LABS: BE(vivo) 3.7 mmol/L (-2 to +3); HCO3 26.3 mmol/L (22.0-26.0); PCO2 33.3 mmHg (35.0-45.0); PO2 450.7 mmHg (80.0-100.0); pH 7.516 (7.360-7.450); sO2 99.9 % (92.0-98.0)
[2017-09-25] VITALS (39 sets, daily range): BP systolic 70–124; BP diastolic 39–101
[2017-09-25 01:07] LABS: CALCIUM 7.8 mg/dL (8.5-10.1); CREATININE 0.7 mg/dL (0.6-1.0); POTASSIUM 3.3 mmol/L (3.5-5.1)
[2017-09-25 05:28] LABS: BE(vivo) 1.2 mmol/L (-2 to +3); HCO3 24.7 mmol/L (22.0-26.0); PCO2 35.5 mmHg (35.0-45.0); PO2 100.9 mmHg (80.0-100.0); pH 7.461 (7.360-7.450); sO2 97.9 % (92.0-98.0)
[2017-09-25 06:21] LABS: ALBUMIN 2.7 g/dL (3.4-5.0); CALCIUM 8.1 mg/dL (8.5-10.1); CREATININE 0.7 mg/dL (0.6-1.0); PHOSPHORUS 2.3 mg/dL (2.5-4.9); POTASSIUM 3.1 mmol/L (3.5-5.1)
[2017-09-26] VITALS (80 sets, daily range): BP systolic 47–172; BP diastolic 22–131
[2017-09-26 04:49] LABS: ABSOLUTE NEUTROPHILS 12.3 thou/uL (1.4-8.2); BASOPHILS 0.1 % (0.0-2.0); EOSINOPHILS 0.2 % (0.0-3.0); HEMATOCRIT 30.7 % (37.0-47.0); HEMOGLOBIN 10.5 gm/dL (12.0-15.0); LYMPHOCYTES 7.8 % (24.0-44.0); MCH 30.9 pg (26.0-34.0); MCHC 34.3 g/dL (28.0-37.0); MCV 90.2 fL (80.0-100.0); MONOCYTES 6.4 % (1.0-8.0); PLATELET COUNT 284 thou/uL (150-400); POLYS 85.5 % (36.0-66.0); RBC 3.41 mil/uL (4.20-5.00); RDW 13.1 % (10.5-14.5); WBC 14.3 thou/uL (4.0-11.0)
[2017-09-26 04:57] LABS: ALBUMIN 2.5 g/dL (3.4-5.0); APTT 23.6 Seconds (24.5-32.8); CALCIUM 8.4 mg/dL (8.5-10.1); CREATININE 0.7 mg/dL (0.6-1.0); PHOSPHORUS 2.5 mg/dL (2.5-4.9); POTASSIUM 3.3 mmol/L (3.5-5.1)
[2017-09-26 23:06] LABS: MAGNESIUM 1.2 mg/dL (1.8-2.4); POTASSIUM 3.1 mmol/L (3.5-5.1)
[2017-09-27] VITALS (51 sets, daily range): BP systolic 73–176; BP diastolic 40–124
[2017-09-27 05:01] LABS: BE(vivo) 1.3 mmol/L (-2 to +3); HCO3 25.4 mmol/L (22.0-26.0); PCO2 38.1 mmHg (35.0-45.0); PO2 142.6 mmHg (80.0-100.0); pH 7.441 (7.360-7.450); sO2 98.9 % (92.0-98.0)
[2017-09-27 06:17] LABS: ABSOLUTE NEUTROPHILS 11.8 thou/uL (1.4-8.2); BASOPHILS 0.5 % (0.0-2.0); EOSINOPHILS 0.7 % (0.0-3.0); HEMATOCRIT 31.5 % (37.0-47.0); HEMOGLOBIN 10.5 gm/dL (12.0-15.0); LYMPHOCYTES 8.3 % (24.0-44.0); MCH 30.6 pg (26.0-34.0); MCHC 33.4 g/dL (28.0-37.0); MCV 91.6 fL (80.0-100.0); MONOCYTES 5.2 % (1.0-8.0); PLATELET COUNT 315 thou/uL (150-400); POLYS 85.3 % (36.0-66.0); RBC 3.44 mil/uL (4.20-5.00); RDW 13.3 % (10.5-14.5); WBC 13.9 thou/uL (4.0-11.0)
[2017-09-27 06:35] LABS: ALBUMIN 2.2 g/dL (3.4-5.0); CREATININE 0.6 mg/dL (0.6-1.0); PHOSPHORUS 2.2 mg/dL (2.5-4.9); POTASSIUM 3.4 mmol/L (3.5-5.1)
[2017-09-27 08:18] LABS: TSH 0.492 uIU/mL (0.358-3.740)
[2017-09-27 15:19] LABS: CSF GLUCOSE 109 mg/dL (40-70); CSF PROTEIN 125 mg/dL (15-45)
[2017-09-27 15:39] LABS: CSF CLARITY CLEAR; CSF COLOR COLORLESS; CSF RBC 1 /mm3; CSF WBC 2 /mm3 (0-10); VOLUME 11 ml
[2017-09-28] VITALS (34 sets, daily range): BP systolic 73–128; BP diastolic 44–77
[2017-09-28 05:26] LABS: BE(vivo) 3.9 mmol/L (-2 to +3); HCO3 27.7 mmol/L (22.0-26.0); PCO2 38.5 mmHg (35.0-45.0); PO2 127.6 mmHg (80.0-100.0); pH 7.475 (7.360-7.450); sO2 98.7 % (92.0-98.0)
[2017-09-28 06:04] LABS: ABSOLUTE NEUTROPHILS 8.3 thou/uL (1.4-8.2); BASOPHILS 0.7 % (0.0-2.0); EOSINOPHILS 1.5 % (0.0-3.0); HEMOGLOBIN 9.9 gm/dL (12.0-15.0); LYMPHOCYTES 9.7 % (24.0-44.0); MCH 31.7 pg (26.0-34.0); MCHC 35.3 g/dL (28.0-37.0); MONOCYTES 7.4 % (1.0-8.0); PLATELET COUNT 292 thou/uL (150-400); POLYS 80.7 % (36.0-66.0); RBC 3.12 mil/uL (4.20-5.00); RDW 13.4 % (10.5-14.5); WBC 10.3 thou/uL (4.0-11.0)
[2017-09-28 06:17] LABS: CALCIUM 7.3 mg/dL (8.5-10.1); CREATININE 0.6 mg/dL (0.6-1.0)
[2017-09-28 06:19] LABS: DIRECT BILIRUBIN < 0.1 mg/dL (<0.1-0.3); GGTP 154 U/L (5-55); SGOT 17 U/L (15-37); SGPT 17 U/L (30-65); TOTAL BILIRUBIN 0.3 mg/dL (<0.1-1.0); TOTAL PROTEIN 5.3 g/dL (6.4-8.2)
[2017-09-28 10:30] LABS: MAGNESIUM 1.5 mg/dL (1.8-2.4)
[2017-09-28 20:32] LABS: MAGNESIUM 1.7 mg/dL (1.8-2.4); POTASSIUM 3.3 mmol/L (3.5-5.1)
[2017-09-29] VITALS (23 sets, daily range): BP systolic 83–143; BP diastolic 49–73
[2017-09-29 04:48] LABS: BE(vivo) 9.7 mmol/L (-2 to +3); HCO3 33.4 mmol/L (22.0-26.0); PCO2 41.6 mmHg (35.0-45.0); PO2 145.9 mmHg (80.0-100.0); pH 7.522 (7.360-7.450); sO2 99.1 % (92.0-98.0)
[2017-09-29 06:07] LABS: HEMATOCRIT 27.2 % (37.0-47.0); HEMOGLOBIN 9.2 gm/dL (12.0-15.0); MCH 30.7 pg (26.0-34.0); MCHC 33.9 g/dL (28.0-37.0); MCV 90.7 fL (80.0-100.0); RDW 13.3 % (10.5-14.5); WBC 8.6 thou/uL (4.0-11.0)
[2017-09-29 06:32] LABS: ALBUMIN 1.9 g/dL (3.4-5.0); CALCIUM 7.6 mg/dL (8.5-10.1); CREATININE 0.5 mg/dL (0.6-1.0); PHOSPHORUS 3.2 mg/dL (2.5-4.9); POTASSIUM 3.5 mmol/L (3.5-5.1)
[2017-09-30] VITALS (81 sets, daily range): BP systolic 87–153; BP diastolic 43–128
[2017-09-30 05:11] LABS: ABSOLUTE NEUTROPHILS 6.9 thou/uL (1.4-8.2); BASOPHILS 0.9 % (0.0-2.0); EOSINOPHILS 3.7 % (0.0-3.0); HEMATOCRIT 26.3 % (37.0-47.0); HEMOGLOBIN 9.1 gm/dL (12.0-15.0); LYMPHOCYTES 13.1 % (24.0-44.0); MCH 31.7 pg (26.0-34.0); MCHC 34.7 g/dL (28.0-37.0); MCV 91.4 fL (80.0-100.0); MONOCYTES 7.3 % (1.0-8.0); PLATELET COUNT 268 thou/uL (150-400); RBC 2.88 mil/uL (4.20-5.00); RDW 13.3 % (10.5-14.5); WBC 9.1 thou/uL (4.0-11.0)
[2017-09-30 05:24] LABS: CALCIUM 8.1 mg/dL (8.5-10.1); CREATININE 0.5 mg/dL (0.6-1.0); PHOSPHORUS 3.2 mg/dL (2.5-4.9); POTASSIUM 3.2 mmol/L (3.5-5.1)
[2017-09-30 13:20] LABS: BE(vivo) 7.4 mmol/L (-2 to +3); HCO3 31.8 mmol/L (22.0-26.0); PCO2 44.3 mmHg (35.0-45.0); pH 7.474 (7.360-7.450)
[2017-10-01] VITALS (38 sets, daily range): BP systolic 52–137; BP diastolic 33–99
[2017-10-01 05:33] LABS: BASOPHILS 1.4 % (0.0-2.0); EOSINOPHILS 4.7 % (0.0-3.0); HEMATOCRIT 25.1 % (37.0-47.0); HEMOGLOBIN 8.5 gm/dL (12.0-15.0); LYMPHOCYTES 18.6 % (24.0-44.0); MCH 31.2 pg (26.0-34.0); MCV 91.8 fL (80.0-100.0); PLATELET COUNT 287 thou/uL (150-400); POLYS 65.3 % (36.0-66.0); RBC 2.74 mil/uL (4.20-5.00); WBC 6.2 thou/uL (4.0-11.0)
[2017-10-01 05:51] LABS: CALCIUM 8.4 mg/dL (8.5-10.1); CREATININE 0.5 mg/dL (0.6-1.0); MAGNESIUM 1.3 mg/dL (1.8-2.4); POTASSIUM 3.6 mmol/L (3.5-5.1)
[2017-10-01 15:51] LABS: MAGNESIUM 1.7 mg/dL (1.8-2.4); POTASSIUM 3.4 mmol/L (3.5-5.1)
[2017-10-02] VITALS (30 sets, daily range): BP systolic 68–134; BP diastolic 38–86
[2017-10-02 04:08] LABS: ALBUMIN 2.2 g/dL (3.4-5.0); CALCIUM 8.3 mg/dL (8.5-10.1); CREATININE 0.5 mg/dL (0.6-1.0); PHOSPHORUS 3.6 mg/dL (2.5-4.9); POTASSIUM 3.8 mmol/L (3.5-5.1)
[2017-10-02 15:49] LABS: BE(vivo) 7.3 mmol/L (-2 to +3); HCO3 30.8 mmol/L (22.0-26.0); PCO2 38.9 mmHg (35.0-45.0); PO2 107.7 mmHg (80.0-100.0); pH 7.516 (7.360-7.450); sO2 98.3 % (92.0-98.0)
[2017-10-03] VITALS (28 sets, daily range): BP systolic 62–142; BP diastolic 34–116
[2017-10-03 06:08] LABS: ALBUMIN 2.3 g/dL (3.4-5.0); CALCIUM 8.6 mg/dL (8.5-10.1); CREATININE 0.5 mg/dL (0.6-1.0); MAGNESIUM 1.7 mg/dL (1.8-2.4); PHOSPHORUS 3.7 mg/dL (2.5-4.9); POTASSIUM 3.7 mmol/L (3.5-5.1)
[2017-10-03 07:36] LABS: HEMATOCRIT 24.1 % (37.0-47.0); HEMOGLOBIN 8.3 gm/dL (12.0-15.0)
[2017-10-03 11:16] LABS: BE(vivo) 6.3 mmol/L (-2 to +3); HCO3 30.6 mmol/L (22.0-26.0); PCO2 42.9 mmHg (35.0-45.0); PO2 112.6 mmHg (80.0-100.0); pH 7.471 (7.360-7.450); sO2 98.3 % (92.0-98.0)
[2017-10-04] VITALS (13 sets, daily range): BP systolic 85–124; BP diastolic 50–79
[2017-10-04 05:23] LABS: CALCIUM 8.5 mg/dL (8.5-10.1); CREATININE 0.5 mg/dL (0.6-1.0); POTASSIUM 3.3 mmol/L (3.5-5.1)
[2017-10-04 05:33] LABS: HEMATOCRIT 24.3 % (37.0-47.0); HEMOGLOBIN 8.3 gm/dL (12.0-15.0); MCH 31.4 pg (26.0-34.0); MCHC 34.1 g/dL (28.0-37.0); MCV 92.1 fL (80.0-100.0); RBC 2.63 mil/uL (4.20-5.00); RDW 13.5 % (10.5-14.5); WBC 7.5 thou/uL (4.0-11.0)
[2017-10-04 08:08] LABS: BE(vivo) 5.4 mmol/L (-2 to +3); HCO3 29.8 mmol/L (22.0-26.0); PO2 109.9 mmHg (80.0-100.0); pH 7.459 (7.360-7.450); sO2 98.2 % (92.0-98.0)
[2017-10-04 17:53] LABS: BE(vivo) 8.3 mmol/L (-2 to +3); HCO3 32.9 mmol/L (22.0-26.0); PO2 59.6 mmHg (80.0-100.0); pH 7.472 (7.360-7.450); sO2 92.1 % (92.0-98.0)
[2017-10-05] VITALS (25 sets, daily range): BP systolic 76–135; BP diastolic 46–114
[2017-10-05 05:02] LABS: HEMATOCRIT 25.7 % (37.0-47.0); HEMOGLOBIN 8.9 gm/dL (12.0-15.0)
[2017-10-05 07:22] LABS: BE(vivo) 7.4 mmol/L (-2 to +3); HCO3 31.7 mmol/L (22.0-26.0); PCO2 43.8 mmHg (35.0-45.0); PO2 80.3 mmHg (80.0-100.0); pH 7.478 (7.360-7.450); sO2 96.5 % (92.0-98.0)
[2017-10-06] VITALS (14 sets, daily range): BP systolic 90–146; BP diastolic 49–120
[2017-10-06 05:45] LABS: HEMATOCRIT 27.3 % (37.0-47.0); HEMOGLOBIN 9.5 gm/dL (12.0-15.0); MCH 31.9 pg (26.0-34.0); MCHC 34.6 g/dL (28.0-37.0); MCV 92.1 fL (80.0-100.0); RBC 2.97 mil/uL (4.20-5.00); RDW 13.6 % (10.5-14.5); WBC 6.7 thou/uL (4.0-11.0)
[2017-10-06 05:55] LABS: CALCIUM 8.9 mg/dL (8.5-10.1); CREATININE 0.5 mg/dL (0.6-1.0); MAGNESIUM 1.5 mg/dL (1.8-2.4); POTASSIUM 3.8 mmol/L (3.5-5.1)
[2017-10-07 04:01] VITALS: BP 116/66
[2017-10-07 05:54] LABS: HEMATOCRIT 28.3 % (37.0-47.0); HEMOGLOBIN 9.7 gm/dL (12.0-15.0); MCH 31.7 pg (26.0-34.0); MCHC 34.2 g/dL (28.0-37.0); MCV 92.6 fL (80.0-100.0); RBC 3.06 mil/uL (4.20-5.00); RDW 13.9 % (10.5-14.5); WBC 5.2 thou/uL (4.0-11.0)
[2017-10-07 06:04] LABS: CALCIUM 9.3 mg/dL (8.5-10.1); CREATININE 0.6 mg/dL (0.6-1.0); MAGNESIUM 1.4 mg/dL (1.8-2.4); POTASSIUM 3.7 mmol/L (3.5-5.1)
[2017-10-07 08:26] VITALS: BP 125/68
[2017-10-07 19:53] VITALS: BP 143/73
[2017-10-08 05:16] LABS: HEMATOCRIT 29.7 % (37.0-47.0); HEMOGLOBIN 9.9 gm/dL (12.0-15.0); MCH 31.1 pg (26.0-34.0); MCHC 33.5 g/dL (28.0-37.0); MCV 92.9 fL (80.0-100.0); RBC 3.2 mil/uL (4.20-5.00); WBC 5.7 thou/uL (4.0-11.0)
[2017-10-08 05:24] LABS: CALCIUM 9.1 mg/dL (8.5-10.1); CREATININE 0.7 mg/dL (0.6-1.0); MAGNESIUM 1.7 mg/dL (1.8-2.4); POTASSIUM 3.3 mmol/L (3.5-5.1); TOTAL BILIRUBIN 0.2 mg/dL (<0.1-1.0); TOTAL PROTEIN 6.8 g/dL (6.4-8.2)
[2017-10-08 05:50] VITALS: BP 104/69
[2017-10-08 08:55] VITALS: BP 119/60
[2017-10-08 12:45] VITALS: BP 122/66
[2017-10-08 18:37] VITALS: BP 133/75
[2017-10-08 19:55] VITALS: BP 115/69
[2017-10-09 05:08] LABS: HEMATOCRIT 27.1 % (37.0-47.0); HEMOGLOBIN 9.2 gm/dL (12.0-15.0); MCH 31.5 pg (26.0-34.0); MCHC 33.9 g/dL (28.0-37.0); MCV 92.9 fL (80.0-100.0); RBC 2.92 mil/uL (4.20-5.00); RDW 14.3 % (10.5-14.5); WBC 4.9 thou/uL (4.0-11.0)
[2017-10-09 05:20] VITALS: BP 122/68
[2017-10-09 05:24] LABS: CALCIUM 8.6 mg/dL (8.5-10.1); CREATININE 0.6 mg/dL (0.6-1.0); MAGNESIUM 1.7 mg/dL (1.8-2.4); POTASSIUM 3.3 mmol/L (3.5-5.1)
[2017-10-09 08:54] VITALS: BP 131/67
[2017-10-09] MEDS ORDERED: VIMPAT100 MG PO (16:02)
[2017-10-09] MEDS ORDERED: PHENYTOIN SODI100 M3 PO (16:02)
[2017-10-09] MEDS ORDERED: PHENOBARBITAL97.2 M2 PO (16:03)
[2017-10-09] MEDS ORDERED: SODIUM CHLORIDE1 GM PO (16:07)
[2017-10-09] MEDS ORDERED: LASIX 40 MG TAB40 M2 PO (16:08)
[2017-10-09 17:51] VITALS: BP 135/72
[2017-10-09 19:30] VITALS: BP 116/70
[2017-10-09 20:51] LABS: HEMOGLOBIN 10.7 gm/dL (12.0-15.0); MCV 93.7 fL (80.0-100.0)
[2017-10-09 20:52] LABS: HEMATOCRIT 31.7 % (37.0-47.0); MCH 31.7 pg (26.0-34.0); MCHC 33.8 g/dL (28.0-37.0); RBC 3.38 mil/uL (4.20-5.00); RDW 14.7 % (10.5-14.5); WBC 10.4 thou/uL (4.0-11.0)
[2017-10-09 21:03] LABS: ALBUMIN 3.6 g/dL (3.4-5.0); CALCIUM 9.6 mg/dL (8.5-10.1); CREATININE 0.6 mg/dL (0.6-1.0); POTASSIUM 4.3 mmol/L (3.5-5.1); TOTAL BILIRUBIN 0.3 mg/dL (<0.1-1.0); TOTAL PROTEIN 7.8 g/dL (6.4-8.2)
== END 2017-10-09 20:00 | DRG 207 ==
LOC: ER 19:24 → ICU 21:27 → EROBS 21:27 → ICU 23:29 → 3W 10-06 16:35
PROVIDERS: Emergency Medicine; Family Medicine; Hospitalist; Internal Medicine; Internal Medicine Gastroenterology; Internal Medicine Pulmonary Disease; Nurse Practitioner Acute Care; Physician Assistant; Psychiatry & Neurology Neuromuscular Medicine; Specialist
DX: J96.01 Acute respiratory failure with hypoxia (principal); I63.9 Cerebral infarction, unspecified; J69.0 Pneumonitis due to inhalation of food and vomit; E87.1 Hypo-osmolality and hyponatremia; J98.11 Atelectasis; G40.901 Epilepsy, unspecified, not intractable, with status epilepticus; E03.9 Hypothyroidism, unspecified; D64.9 Anemia, unspecified; R13.10 Dysphagia, unspecified; E87.6 Hypokalemia; I10 Essential (primary) hypertension; J32.9 Chronic sinusitis, unspecified; Z88.8 Allergy status to other drugs, medicaments and biological substances
CPT/HCPCS: 10078; 10879; 27000

== ENCOUNTER 2017-10-09 20:17 | Inpatient (IN) | payer OTHER ==
[~2017-10-09] VITALS: Ht 160 cm; Wt 73.7 kg
--- NOTE | ~2017-10-09 | H ---
[facility] [place] [address] [place] [address] HISTORY AND PHYSICAL Name: JUAN THOMPSON Room #: 514-P [facility] IN M.R.#: [id number] Admission: 10/09/17 Attend Phys: Jose Elias Lozoya MD Discharge: 10/25/17 Date of : 42 Report #: [id number] THIS REPORT FOR: //name// CC: Jose Elias Dowd DATE OF SERVICE: 10/09/2017 HISTORY OF PRESENT ILLNESS: The patient is a 77-year-old white female who lives in an independent living apartment at [facility]. She was originally admitted to [facility] [place] with mental status changes, not talking normally, decreased attention and was admitted and noted to have some tonic clonic seizures. She was noted to have intractable seizures with status epilepticus. Sodium was 110. She was intubated, initially on low dose propofol. When her management has been lightened with the propofol, she went into seizure activity. Her sodium gradually improved to 132. She had some anemia with positive gastric occult and Gastroenterology has been involved. As part of her neurologic workup, she underwent an MRI scan, which showed a medial right temporal anterior occipital small infarct. Last known seizure activity was 09/30/2017. She has been on the Dilantin for the status epilepticus. No further seizures. Gastroenterology noted no further signs of bleeding. Continue to monitor hemoglobin. She did initially have acute respiratory failure thought due to aspiration pneumonia that has improved. Severe hyponatremia is improving. She did have dysphagia with Dobbhoff initial replacement, subsequently removed on 10/05/2017. She does have significant functional mobility ADL, cognitive concerns and has now been admitted for acute in-hospital inpatient rehabilitation. Speech therapy concerns regarding swallowing as well. She is on a nectar-thickened liquid diet. PAST MEDICAL HISTORY: Seizure, hypothyroidism, and hypertension. MEDICATIONS: Please see the full medication listing. ALLERGIES: No known drug allergies. HABITS: No history of tobacco or alcohol abuse. SOCIAL HISTORY: Lives at [facility] in her own apartment. She was living there alone, apparently did not utilize any assistive device for ambulation. REVIEW OF SYSTEMS: Did not offer any current complaints of chest pain, shortness of breath, abdominal discomfort. She feels that her left lower extremity has decreased sensation. No focal extremity pain complaints. PHYSICAL EXAMINATION: [facility] [address] [place] [address] HISTORY AND PHYSICAL Name: JUAN THOMPSON Room #: 514-P [facility] IN M.R.#: [id number] Admission: 10/09/17 Attend Phys: Jose Elias Lozoya MD Discharge: 10/25/17 Date of : 42 Report #: [id number] GENERAL: The patient is a pleasant 77-year-old overweight white female, in no obvious distress. VITAL SIGNS: Last recorded temperature 98.2, pulse 81, respirations 18, and blood pressure 133/71. HEENT: Appeared to be benign. NEUROLOGIC: Cranial nerves are grossly intact. She is somewhat tangential in her speech. CHEST: Sounded clear to auscultation. CARDIOVASCULAR: Regular rate and rhythm. ABDOMEN: Bowel sounds positive, nontender, and obese. GENITOURINARY AND RECTAL: Deferred. EXTREMITIES: She has functional range of motion of the upper extremities. Some coordination difficulties of the left upper extremity. Strength is probably a grade 3+ to 4-/5. Left lower extremity strength is 3+ to 4-/5. Some decreased coordination. Right lower extremity is more of a grade 4 to 4-, right upper extremity is 4 to 4-. Sensory examination may be slightly decreased left lower extremity to simultaneous stimulation. She is needing assistance with basic functional mobility skills and has been max assist with basic transfers, max assist, ambulated short distance ambulation. Lower body dressing has been max assist. ASSESSMENT: A 77-year-old white female with the following problem list: 1. 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 2. Status epilepticus. 3. Left-sided humberto-coordination deficits with some decreased hemisensory component. 4. Respiratory failure, thought secondary to aspiration, improved. 5. Dysphagia. Continues on thickened liquids. 6. Severe hyponatremia that has improved. 7. Initial anemia with positive gastric occult that appears stabilized. PLAN: The patient is admitted for acute in-hospital inpatient rehabilitation. From a post-admission physician evaluation perspective, there are no relevant changes since the preadmission screening. Please see the above review of prior and current medical and functional conditions and comorbidities. Please see the patient's previous and current functional status. As far as risk of complications, the patient has multiple medical comorbidities as noted above. Initial plan of care involves the interdisciplinary acute inpatient rehabilitation program with goal of maximizing the patient's functional independence, so that she can hopefully return back to her prior living situation. Measurable functional goals would be for her to improve as far as transfers, mobility and ADLs, communication, swallowing. Ideally, she will become independent at a walker level. Prognosis is reasonably good with estimated length of stay probably fairly along with her lower functional level. [facility] [address] [place] [address] HISTORY AND PHYSICAL Name: JUAN THOMPSON Room #: 514-P [facility] IN M.R.#: [id number] Admission: 10/09/17 Attend Phys: Jose Elias Lozoya MD Discharge: 10/25/17 Date of : 42 Report #: [id number] Potential barriers would include her multiple medical comorbidities and decreased functional status. <ELECTRONICALLY SIGNED> By: Jose Elias Lozoya MD 10/26/17 1408 0956 1128 Jose Elias Lozoya MD /nt
--- NOTE | ~2017-10-09 | EEG ---
[facility] [address] [facility] [address] ELECTROENCEPHALOGRAM Name: JUAN THOMPSON Room #: 515-P [facility] IN M.R.#: [id number] Admission: 10/09/17 Attend Phys: Jose Elias Lozoya MD Discharge: Date of : 42 Report #: [id number] THIS REPORT FOR: //name// CC: Jose Elias Dowd DATE OF SERVICE: 10/11/2017 This patient has a seizure and she had some tiredness and unresponsiveness this afternoon. EEG was done to evaluate that. The background activity in this patient's EEG is about 8 Hz and 30 microvolts. The patient went to sleep that is associated with bilaterally symmetrical sleep spindle and vertex sharp waves. Photic stimulation is unremarkable. Throughout the record, no active epileptiform activity was noticed. IMPRESSION: This patient's EEG demonstrates some intermixed slowing, but no active epileptiform activity is present at the moment. Thank you very much for this referral. <ELECTRONICALLY SIGNED> By: Milton Avilez MD 10/17/172010 1858 36 Milton Avilez MD /nt
--- NOTE | ~2017-10-09 | PLAN ---
[facility] [place] [address] REHAB UNIT PLAN OF CARE Name: JUAN THOMPSON Room #: 515-P ADM IN M.R.#: [id number] Admission: 10/09/17 Attend Phys: Jose Elias Lozoya MD Discharge: Date of : 44 Report #: [id number] THIS REPORT FOR: //name// CC: Jose Elias Dowd DATE OF SERVICE: 10/12/2017 PROGRESS NOTE/OVERALL PLAN OF CARE SUBJECTIVE: The patient was seen back today in followup. She is in no distress. Temperature 97.9, pulse 81, respirations 20, blood pressure 110/55. No focal calf swelling. She is working in therapies with transfers, mod assist. Gait min assist 10 feet parallel bars. In occupational therapy, upper body dressing is max assist, lower body dressing is dependent. She has mild comprehensive deficits. She is on mechanical soft nectar thickened liquid diet. ASSESSMENT: 1. 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 2. Status epilepticus. 3. Left-sided humberto-coordination deficits with some decreased hemisensory component. 4. Respiratory failure, thought secondary to aspiration, improved. 5. Dysphagia is still on thickened liquids. 6. Severe hyponatremia that has improved. PLAN: The overall plan of care is based on the preadmission screen, post-admission physician evaluation, and information garnered from therapy assessments. The patient's Dilantin level was noted to be elevated with discussion with Dr. Avilez, who recommended holding it pending today's result. From an overall plan of care this is based on the preadmission screen, post-admission physician evaluation, and information garnered from therapy assessments. 1. Estimated length of stay is probably two weeks or potentially longer up to 3 weeks depending upon how she does. 2. Medical prognosis is reasonably good. 3. Anticipated interventions includes the interdisciplinary acute inpatient rehabilitation program with PT, OT and speech, rehabilitation nursing assisting regarding medication management, skin care prophylaxis, bowel and bladder issues and nursing education. The data security consultant physicians will continue to follow along with the rest of the interdisciplinary team. 4. Anticipated functional outcomes would be for the patient to become modified independent with transfers, mobility and ADLs at least at the walker level ideally. 5. Discharge destination would be back to the home setting where she has been at [facility] in an independent living apartment. [address] [address] REHAB UNIT PLAN OF CARE Name: JUAN THOMPSON Room #: 515-P [facility] IN M.R.#: [id number] Admission: 10/09/17 Attend Phys: Jose Elias Lozoya MD Discharge: Date of : 44 Report #: [id number] 3. Expected therapy by discipline includes PT, OT and speech 1 hour per day each five days a week throughout the duration of the acute inpatient rehabilitation stay. <ELECTRONICALLY SIGNED> By: Jose Elias Lozoya MD 10/15/17 1226 [id number] Jose Elias Lozoya MD /PRECIOUS
--- NOTE | ~2017-10-09 | EKG ---
[address] [address] ELECTROCARDIOGRAM REPORT Name: THOMPSONJUAN Room #: 515-P ADM IN M.R.#: [id number] Admission: 10/09/17 Attend Phys: Jose Elias Lozoya MD Discharge: Date of : 44 Report #: [id number] THIS REPORT FOR: //name// [facility] Test Date: 2017-10-12 Test Time: 03:09:40 Pat Name: JUAN THOMPSON Department: Room: 515 Gender: F Commodities Clerk: baldemar : 1940 Requested By: Milton Avilez Order Number: [id number] MD: Measurements Intervals [place] Rate: 86 P: 33 NE: 175 QRS: 33 QRSD: 75 T: 19 QT: 374 QTc: 448 Interpretive Statements Sinus rhythm Consider left atrial enlargement Abnormal R-wave progression, early transition Compared to ECG 09/23/2017 20:05:16 T-wave abnormality no longer present [email or web address] By: [id number] Epiphany Epiphany, /EPI
--- NOTE | ~2017-10-09 | EEG ---
[facility] [place] [address] [place] [address] ELECTROENCEPHALOGRAM Name: JUAN THOMPSON Room #: 515-P [facility] IN M.R.#: [id number] Admission: 10/09/17 Attend Phys: Jose Elias Lozoya MD Discharge: Date of : 44 Report #: [id number] THIS REPORT FOR: //name// CC: Jose Elias Dowd DATE OF SERVICE: 10/16/2017 This patient is being evaluated for any reoccurrence of her seizure after cutting back her anticonvulsant. Background activity in this patient's EEG is about 8 Hz and 30 microvolt. It is intermixed with theta range slowing on both sides. The patient went to sleep that was associated with bilaterally symmetrical sleep spindle and vertex sharp waves. Throughout the record, no active epileptiform activity was noticed. IMPRESSION: This patient's EEG is moderately abnormal because it is intermixed with theta range slowing on both sides. That is a nonspecific abnormality, which can occur with encephalopathy, effect of psychotropic medication, dementia, etc. No active epileptiform activity has returned. Thank you very much for this referral. <ELECTRONICALLY SIGNED> By: Milton Avielz MD 10/17/172010 [id number] [id number] Milton Avilez MD /nt
--- NOTE | ~2017-10-09 | HC ---
[facility] [place] [address] [place] [address] CONSULTATION Name: JUAN THOMPSON Room #: 515-P [facility] IN M.R.#: [id number] Admission: 10/09/17 Attend Phys: Jose Elias Lozoya MD Discharge: Date of : 44 Report #: [id number] THIS REPORT FOR: //name// CC: Jose Elias Dowd DATE OF SERVICE: 10/13/2017 ATTENDING PHYSICIAN: Jose Elias Lozoya M.D. SCIENTIFIC PROGRAMMER: Sukumar Ohara, PhD CLINICAL PRESENTATION: The patient is a 77-year-old female admitted to [facility] rehabilitation unit for comprehensive inpatient rehabilitation program to improve functional mobility, activities of daily living and self-care and mental status secondary to deficits from medial right temporal anterior occipital CVA. She was also status epilepticus, left-sided humberto-coordination deficits, respiratory failure secondary to aspiration, dysphagia, severe hyponatremia that has improved. A complete description of her medical condition and history can be found in her medical record. Neuropsychological consultation was requested to provide assistance in the assessment of cognitive and emotional status and to provide recommendations and services. Prior to this recent hospitalization, the patient was living independently in at [facility] facility. She was reported to have been independent with instrumental activities of daily living. There were no reported problems with memory, attention/concentration, verbal fluency or other aspects of ability to maintain her independent apartment. She has 2 children. 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 She is a high school graduate. TECHNIQUES UTILIZED: Clinical interview, review of medical records, staff consultation and behavioral observation, mini mental status exam 2 brief version, and then family interview -- daughter. EXAMINATION FINDINGS: The patient was alert and cooperative with the assessment. She was partially accurate in her ability to describe what brought her to the hospital to the extent of identified seizure disorder. However, she did not initially identify the stroke as being her principal complaint. The patient does not present with aphasia. Her thoughts were logical and goal oriented. There was no evidence of thought disorder. She does not report auditory or visual hallucinations. Her daughter indicates that the patient did not remember that the daughter was in a wheelchair and had progressive multiple sclerosis. [address] [address] CONSULTATION Name: JUAN THOMPSON Room #: 515-P [facility] IN M.R.#: [id number] Admission: 10/09/17 Attend Phys: Jose Elias Lozoya MD Discharge: Date of : 44 Report #: [id number] Her daughter reported that she has been in a wheelchair with MS for about 12 months. However, the patient did not remember that the daughter had MS or that she required a wheelchair. She describes her symptoms to include difficulty with memory and anxiety. Anxiety is somewhat longstanding. Her performance on the MMSE 2 brief version was in the severely impaired range with a raw score of 8/16. She was 3/3 for initial registration, 2/5 for orientation to time, 3/[address] and 0/3 for immediate recall of 3 items after a brief time delay and distraction. However, her hearing is severely compromised which interferes with the assessment. Performance on the MMSE 2 standard version suggests naming and auditory comprehension as within normal limits if the patient is able to hear content. She is able to read and follow single command. Visual spatial organization was within normal limits. Clock drawing was satisfactory. Some difficulty with visual spatial organization is noted. DIAGNOSTIC IMPRESSION: Neurocognitive Disorder, due to medical condition with vascular features, without behavior disorder - extent to be determined -Likely moderate severity Generalized Anxiety Disorder RECOMMENDATIONS; The patient is presenting with severe impairment in hearing, which interferes with the assessment. Immediate recall is showing severe impairment. The patient may benefit from further audiology evaluation following her discharge. During her rehabilitation program, The use of hearing augmentor would be of benefit. Additionally, she will need assistance in the management of medications, finances and nutrition. Assisted living would likely be a preferable placement at this time. The use of written material should be utilized to assist in the compensation for auditory deficits. Thank you very much for allowing me to provide the consultation on this patient. <ELECTRONICALLY SIGNED> By: Sukumar Ohara, PhD 10/14/17 1349 [id number] Sukumar Ohara, PhD /nt
[2017-10-09 19:00] VITALS: BP 133/71
[~2017-10-09 20:17] MED LIST: ALLER-FEX180 MG PO; ASPIRIN325 PO; B12INJ IM; DILANTIN100 MG PO; FISH OIL 1,001000 M2 PO; FOLIC ACID1 MG PO; LASIX 40 MG TAB40 M2 PO; MAXZIDE-25 MG1 EACH PO; MULTIPLE VITAM1 EAC2 PO; NEXIUM40 MG PO; PHENOBARBITAL97.2 M2 PO; PHENYTOIN SODI100 M3 PO; SODIUM CHLORIDE1 GM PO; SYNTHROID100 MCG PO; VIMPAT100 MG PO
[2017-10-10 03:56] LABS: HEMATOCRIT 29.3 % (37.0-47.0); MCH 31.7 pg (26.0-34.0); MCHC 34.3 g/dL (28.0-37.0); MCV 92.6 fL (80.0-100.0); RBC 3.17 mil/uL (4.20-5.00); RDW 14.3 % (10.5-14.5)
[2017-10-10 04:07] LABS: CREATININE 0.7 mg/dL (0.6-1.0); POTASSIUM 3.6 mmol/L (3.5-5.1)
[2017-10-10 08:00] VITALS: BP 124/61
[2017-10-10 21:08] VITALS: BP 130/77
[2017-10-11 08:00] VITALS: BP 108/62
[2017-10-11 15:11] LABS: ABSOLUTE NEUTROPHILS 3.9 thou/uL (1.4-8.2); BASOPHILS 0.9 % (0.0-2.0); EOSINOPHILS 2.7 % (0.0-3.0); HEMATOCRIT 27.9 % (37.0-47.0); HEMOGLOBIN 9.5 gm/dL (12.0-15.0); LYMPHOCYTES 25.2 % (24.0-44.0); MCH 31.8 pg (26.0-34.0); MCHC 34.1 g/dL (28.0-37.0); MCV 93.1 fL (80.0-100.0); MONOCYTES 7.6 % (1.0-8.0); PLATELET COUNT 459 thou/uL (150-400); POLYS 63.6 % (36.0-66.0); RDW 14.6 % (10.5-14.5); WBC 6.1 thou/uL (4.0-11.0)
[2017-10-11 15:18] LABS: CALCIUM 8.6 mg/dL (8.5-10.1); CREATININE 0.6 mg/dL (0.6-1.0); POTASSIUM 3.2 mmol/L (3.5-5.1)
[2017-10-11 15:24] LABS: ALBUMIN 3.2 g/dL (3.4-5.0); TOTAL BILIRUBIN 0.2 mg/dL (<0.1-1.0); TOTAL PROTEIN 6.6 g/dL (6.4-8.2)
[2017-10-11 16:12] LABS: MAGNESIUM 1.6 mg/dL (1.8-2.4)
[2017-10-11 17:42] VITALS: BP 122/55
[2017-10-11 20:25] VITALS: BP 110/55
[2017-10-12 08:55] VITALS: BP 112/76
[2017-10-12 10:01] LABS: ABSOLUTE NEUTROPHILS 6.1 thou/uL (1.4-8.2); BASOPHILS 0.9 % (0.0-2.0); EOSINOPHILS 1.9 % (0.0-3.0); HEMATOCRIT 28.8 % (37.0-47.0); HEMOGLOBIN 9.7 gm/dL (12.0-15.0); LYMPHOCYTES 11.7 % (24.0-44.0); MCH 31.6 pg (26.0-34.0); MCHC 33.7 g/dL (28.0-37.0); MCV 93.7 fL (80.0-100.0); MONOCYTES 5.6 % (1.0-8.0); PLATELET COUNT 467 thou/uL (150-400); POLYS 79.9 % (36.0-66.0); RBC 3.07 mil/uL (4.20-5.00); RDW 15.3 % (10.5-14.5); WBC 7.6 thou/uL (4.0-11.0)
[2017-10-12 10:10] LABS: CALCIUM 8.9 mg/dL (8.5-10.1); CREATININE 0.7 mg/dL (0.6-1.0); MAGNESIUM 1.6 mg/dL (1.8-2.4); POTASSIUM 3.8 mmol/L (3.5-5.1)
[2017-10-12 15:00] VITALS: BP 124/68
[2017-10-12 19:25] VITALS: BP 124/68
[2017-10-13 06:44] VITALS: BP 122/63
[2017-10-13 07:59] VITALS: BP 119/50
[2017-10-13 09:56] LABS: ALBUMIN 3.6 g/dL (3.4-5.0); CALCIUM 9.2 mg/dL (8.5-10.1); CREATININE 0.8 mg/dL (0.6-1.0); PHOSPHORUS 3.6 mg/dL (2.5-4.9); POTASSIUM 3.6 mmol/L (3.5-5.1)
[2017-10-13 20:50] VITALS: BP 138/63
[2017-10-14 05:15] LABS: ABSOLUTE NEUTROPHILS 6.3 thou/uL (1.4-8.2); BASOPHILS 0.8 % (0.0-2.0); HEMATOCRIT 28.2 % (37.0-47.0); HEMOGLOBIN 9.5 gm/dL (12.0-15.0); LYMPHOCYTES 24.7 % (24.0-44.0); MCH 31.8 pg (26.0-34.0); MCHC 33.7 g/dL (28.0-37.0); MCV 94.2 fL (80.0-100.0); MONOCYTES 6.5 % (1.0-8.0); PLATELET COUNT 467 thou/uL (150-400); RBC 2.99 mil/uL (4.20-5.00); RDW 15.4 % (10.5-14.5); WBC 9.6 thou/uL (4.0-11.0)
[2017-10-14 05:29] LABS: ALBUMIN 2.9 g/dL (3.4-5.0); CALCIUM 8.8 mg/dL (8.5-10.1); CREATININE 0.7 mg/dL (0.6-1.0); MAGNESIUM 1.7 mg/dL (1.8-2.4); PHOSPHORUS 3.6 mg/dL (2.5-4.9); POTASSIUM 3.7 mmol/L (3.5-5.1)
[2017-10-14 05:33] VITALS: BP 126/57
[2017-10-14 08:00] VITALS: BP 136/75
[2017-10-14 20:01] VITALS: BP 134/72
[2017-10-15 08:45] VITALS: BP 122/58
[2017-10-15 20:48] VITALS: BP 120/61
[2017-10-16 08:00] VITALS: BP 102/51
[2017-10-16 19:20] VITALS: BP 119/61
[2017-10-17 09:00] VITALS: BP 127/61
[2017-10-17 13:00] VITALS: BP 114/50
[2017-10-17 13:46] VITALS: BP 114/50
[2017-10-17 20:30] VITALS: BP 124/59
[2017-10-18 06:10] LABS: ABSOLUTE NEUTROPHILS 3.6 thou/uL (1.4-8.2); BASOPHILS 0.7 % (0.0-2.0); EOSINOPHILS 3.8 % (0.0-3.0); LYMPHOCYTES 29.5 % (24.0-44.0); MCHC 33.5 g/dL (28.0-37.0); MCV 95.3 fL (80.0-100.0); MONOCYTES 9.9 % (1.0-8.0); PLATELET COUNT 403 thou/uL (150-400); POLYS 56.1 % (36.0-66.0); RBC 2.83 mil/uL (4.20-5.00); RDW 15.7 % (10.5-14.5); WBC 6.5 thou/uL (4.0-11.0)
[2017-10-18 06:27] LABS: CALCIUM 8.8 mg/dL (8.5-10.1); CREATININE 0.7 mg/dL (0.6-1.0); MAGNESIUM 1.9 mg/dL (1.8-2.4)
[2017-10-18 08:15] VITALS: BP 136/58
[2017-10-18 19:36] VITALS: BP 122/70
[2017-10-19 08:30] VITALS: BP 126/64
[2017-10-19 19:45] VITALS: BP 135/75
[2017-10-20 08:00] VITALS: BP 106/64
[2017-10-20 21:45] VITALS: BP 126/65
[2017-10-21 08:39] VITALS: BP 142/72
[2017-10-21 16:40] VITALS: BP 147/77
[2017-10-21 19:40] VITALS: BP 94/43
[2017-10-21 22:40] VITALS: BP 145/64
[2017-10-22 04:27] LABS: ABSOLUTE NEUTROPHILS 2.1 thou/uL (1.4-8.2); BASOPHILS 1.1 % (0.0-2.0); EOSINOPHILS 3.6 % (0.0-3.0); HEMATOCRIT 29.7 % (37.0-47.0); LYMPHOCYTES 49.8 % (24.0-44.0); MCH 32.1 pg (26.0-34.0); MCHC 33.6 g/dL (28.0-37.0); MCV 95.5 fL (80.0-100.0); MONOCYTES 8.6 % (1.0-8.0); PLATELET COUNT 367 thou/uL (150-400); POLYS 36.9 % (36.0-66.0); RBC 3.11 mil/uL (4.20-5.00); RDW 16.1 % (10.5-14.5); WBC 5.6 thou/uL (4.0-11.0)
[2017-10-22 04:38] LABS: CREATININE 0.9 mg/dL (0.6-1.0); MAGNESIUM 1.8 mg/dL (1.8-2.4); POTASSIUM 4.2 mmol/L (3.5-5.1)
[2017-10-22 08:57] VITALS: BP 101/54
[2017-10-22 21:00] VITALS: BP 105/52
[2017-10-23 06:32] LABS: URINE BILIRUBIN NEGATIVE (Negative); URINE BLOOD TRACE (Negative); URINE CLARITY CLEAR; URINE COLOR YELLOW; URINE GLUCOSE-RANDOM* NEGATIVE (Negative); URINE KETONES NEGATIVE (Negative); URINE PROTEIN (DIPSTICK) NEGATIVE (Negative); URINE UROBILINOGEN 0.2 E.U./dl (0.2-1.0)
[2017-10-23 06:36] LABS: URINE LEUKOCYTES-REFLEX 3+ (Negative); URINE NITRITE-REFLEX POSITIVE (Negative)
[2017-10-23 07:30] VITALS: BP 116/56
[2017-10-23 08:08] LABS: BACTERIA-REFLEX >30 Many /HPF (None Seen); CASTS None Seen /LPF (None Seen); CRYSTALS None Seen /LPF (None Seen); SQUAMOUS 0-3 Few /LPF (0-3); URINE RBC 0-2 Rare /HPF (0-2); URINE WBC-REFLEX >25 Many /HPF (0-5); WBC CLUMPS Packed (None Seen)
[2017-10-23 19:20] VITALS: BP 127/60
[2017-10-24 04:12] LABS: ABSOLUTE NEUTROPHILS 3.3 thou/uL (1.4-8.2); BASOPHILS 0.6 % (0.0-2.0); EOSINOPHILS 3.1 % (0.0-3.0); HEMATOCRIT 26.2 % (37.0-47.0); HEMOGLOBIN 8.9 gm/dL (12.0-15.0); LYMPHOCYTES 36.9 % (24.0-44.0); MCH 32.3 pg (26.0-34.0); MCHC 33.9 g/dL (28.0-37.0); MCV 95.3 fL (80.0-100.0); POLYS 51.4 % (36.0-66.0); RBC 2.75 mil/uL (4.20-5.00); RDW 16.4 % (10.5-14.5); WBC 6.3 thou/uL (4.0-11.0)
[2017-10-24 04:16] LABS: PLATELET COUNT 292 thou/uL (150-400)
[2017-10-24 04:22] LABS: CALCIUM 8.6 mg/dL (8.5-10.1); CREATININE 0.7 mg/dL (0.6-1.0); MAGNESIUM 1.7 mg/dL (1.8-2.4)
[2017-10-24 04:28] LABS: POTASSIUM 4.1 mmol/L (3.5-5.1)
[2017-10-24 08:15] VITALS: BP 113/55
[2017-10-24 19:10] VITALS: BP 106/52
[2017-10-25] MEDS ORDERED: MAGOX 400400 MG PO (07:55)
[2017-10-25] MEDS ORDERED: ERGOCALCIF50000 UNIT PO (07:55)
[2017-10-25] MEDS ORDERED: AUGMENTIN 875-1 EACH PO (07:55)
[2017-10-25] MEDS ORDERED: PHENYTOIN SODI100 M3 PO (07:55)
[2017-10-25] MEDS ORDERED: LASIX 40 MG TAB40 M2 PO (07:55)
[2017-10-25] MEDS ORDERED: PROBIOTIC1 EAC1 PO (08:01)
[2017-10-25] MEDS ORDERED: PHENYTOIN50 MG PO (08:16)
[2017-10-25 08:52] VITALS: BP 129/79
[2017-10-25 10:19] VITALS: BP 129/79
[2017-10-25 13:02] VITALS: BP 129/79
== END 2017-10-25 16:00 | disposition home health service (06) | DRG 64 ==
PROVIDERS: Hospitalist; Nurse Practitioner; Nurse Practitioner Acute Care; Physical Medicine & Rehabilitation; Psychiatry & Neurology Neurology; Psychiatry & Neurology Neuromuscular Medicine
PROC: 2W3 Placement, Anatomical Regions, Immobilization (ICD-10-PCS; principal; 2017-10-20)
DX: I63.9 Cerebral infarction, unspecified (principal); J96.00 Acute respiratory failure, unspecified whether with hypoxia or hypercapnia; J69.0 Pneumonitis due to inhalation of food and vomit; E87.1 Hypo-osmolality and hyponatremia; G40.911 Epilepsy, unspecified, intractable, with status epilepticus; S52.502A Unspecified fracture of the lower end of left radius, initial encounter for closed fracture; N39.0 Urinary tract infection, site not specified; R13.10 Dysphagia, unspecified; R41.9 Unspecified symptoms and signs involving cognitive functions and awareness; F41.1 Generalized anxiety disorder; D64.9 Anemia, unspecified; E03.9 Hypothyroidism, unspecified; I10 Essential (primary) hypertension; R53.81 Other malaise; E87.6 Hypokalemia; E83.42 Hypomagnesemia; T42.0X5A Adverse effect of hydantoin derivatives, initial encounter; Y92.89 Other specified places as the place of occurrence of the external cause; Z88.8 Allergy status to other drugs, medicaments and biological substances; Z91.018 Allergy to other foods; Z79.82 Long term (current) use of aspirin; Z79.899 Other long term (current) drug therapy; W19.XXXA Unspecified fall, initial encounter; Y93.89 Activity, other specified; Y99.8 Other external cause status; Z23 Encounter for immunization
CPT/HCPCS: 10112